=== PATIENT | male | born 2000 | race Caucasian/White ===

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

== ENCOUNTER → 2018-01-16 | Outpatient (REF) | LOC: ZLAB.WCH 10:58 | DX: Z01.89 Encounter for other specified special examinations (principal) ==

== ENCOUNTER 2020-01-09 17:05 | Emergency (ER) | payer BC ==
[~2020-01-09] VITALS: Ht 165.1 cm; Wt 63.6 kg
[2020-01-09 17:11] VITALS: BP 132/84; TEMP 98.1
[2020-01-09 17:36] VITALS: PULSE 84
== END 2020-01-09 17:34 | disposition home or self-care (01) ==
LOC: COL.ER 17:05
DX: S06.0X0A Concussion without loss of consciousness, initial encounter (principal); Z88.8 Allergy status to other drugs, medicaments and biological substances; X50.1XXA Overexertion from prolonged static or awkward postures, initial encounter; Y93.E5 Activity, floor mopping and cleaning; Y99.0 Civilian activity done for income or pay